=== PATIENT | female | born 1985 | race Caucasian/White ===

== ENCOUNTER 2022-05-26 23:51 | Emergency (ER) | payer MEDICAID ==
[~2022-05-26] VITALS: Ht 165.1 cm; Wt 63.5 kg
[2022-05-27] MEDS ORDERED: LORAZEPAM 2 MG/1 ML VIAL ONE (00:08)
[2022-05-27] MEDS ORDERED: LORAZEPAM 2 MG/1 ML VIAL IV ONE (00:15)
[2022-05-27 00:41] LABS: CARBON DIOXIDE 28 mmol/L (21-32); CHLORIDE 101 mmol/L (98-107); GLUCOSE 117 mg/dL (74-106); POTASSIUM 3.4 mmol/L (3.5-5.1); UREA NITROGEN, BLOOD 10 mg/dL (7-18)
[2022-05-27] MEDS ORDERED: KETAMINE HCL 500 MG/10 ML INJ IV ONE (00:45)
[2022-05-27 00:53] LABS: HEMATOCRIT 39.5 % (31.2-41.9); MEAN CORPUSCULAR HEMOGLOBIN 29.8 uug (24.7-32.8); MEAN CORPUSCULAR VOLUME 88.2 fL (75.5-95.3); PLATELET COUNT (AUTO) 315 K/uL (179-408)
[2022-05-27 00:57] LABS: ALANINE AMINOTRANSFERASE 21 U/L (14-59); ALKALINE PHOSPHATASE 69 U/L (50-136); ASPARTATE AMINOTRANSFERASE 18 U/L (15-37); BILIRUBIN,DIRECT < 0.1 mg/dL (0.0-0.2); BILIRUBIN,TOTAL 0.3 mg/dL (0.2-1.0); TOTAL PROTEIN, SERUM 7.9 g/dL (6.4-8.2)
[2022-05-27 00:58] LABS: ETHANOL < 3 MG/DL (0-0)
[2022-05-27 00:59] LABS: ACETAMINOPHEN < 10.0 ug/mL (10-30)
[2022-05-27] MEDS ORDERED: KETAMINE HCL 500 MG/10 ML INJ ONE (01:00)
[2022-05-27 01:18] LABS: CREATINE KINASE, TOTAL 142 U/L (26-192)
--- NOTE | 2022-05-27 02:32 | NUR ---
Patient sleeping with no distress noted.
--- NOTE | 2022-05-27 05:30 | NUR ---
Patient awake, A/Ox3 ambulating with steady gait. No distress noted.
--- NOTE | 2022-05-27 06:13 | NUR ---
IV removed. Catheter intact and site benign. Pressure and 4x4 gauze applied to site. No bleeding noted.
--- NOTE | 2022-05-27 06:17 | NUR ---
Patient discharged to home in stable condition. Written and verbal after care instructions given. Patient verbalizes understanding of instructions. Stressed follow up or return to ER for worsening s/s. Franki is a/ox4, NAD noted. Patient is able to walk with steady gait
[2022-05-27 06:36] VITALS: BP 140/82
== END 2022-05-27 06:37 | disposition home or self-care (01) ==
LOC: ER 05-27 00:05
DX: G93.40 Encephalopathy, unspecified (principal); D72.829 Elevated white blood cell count, unspecified; E87.6 Hypokalemia
CPT/HCPCS: 93005; 70450 ×2; 80076; 80048; 82140; 82550; 85025; 85730; 84484; 84702; 99285; 96374; 96372; 83605; 80299; 80320; 80307; J3490; J2060; 36415; A4663; G0480